=== PATIENT | male | born 1960 | race Caucasian/White ===

== ENCOUNTER 2021-05-06 02:17 | Observation (INO) | payer BC ==
[~2021-05-06] VITALS: Ht 167.6 cm; Wt 136.0 kg
[2021-05-06] VITALS (23 sets, daily range): BP systolic 130–171; BP diastolic 63–90
--- NOTE | 2021-05-06 02:20 | NUR ---
PT TO ROOM VIA EMS STRETCHER
[2021-05-06 02:50] LABS: HEMATOCRIT 40.7 % (39.0-50.0); HEMOGLOBIN 13.6 g/dl (14.0-18.0); IMMATURE GRANULOCYTES 0.9 % (0.0-5.0); MEAN CELL VOLUME 83.1 fL CALC (80.0-100.0); MEAN CORPUSCULAR HGB 27.8 pG CALC (26.0-32.0); MEAN CORPUSCULAR HGB CONC 33.4 g/dL CAL (32.0-36.0); NEUT# 5.94 thou/uL (1.82-7.42); RED BLOOD COUNT 4.9 mill/uL (4.70-6.10); RED CELL DISTRI WIDTH 13.4 % (11.5-15.5)
[2021-05-06 02:56] LABS: ALBUMIN 3.7 g/dL (3.2-5.0); ALKALINE PHOSPHATASE 129 u/l (38-126); ANION GAP 10 (6-22 (CALC)); BILIRUBIN, TOTAL 0.6 mg/dL (0.0-1.4); BUN 19 mg/dL (9-20); BUN/CREATININE RATIO 18 (12-20 (CALC)); CARBON DIOXIDE 25 mmol/l (22-30); CHLORIDE 100 mmol/l (95-108); CREATININE 1.1 mg/dL (0.7-1.3); GFR > 60 ML/MIN (>=60 (CALC)); GFR FOR AFR.AMER. > 60 ML/MIN (>=60 (CALC)); POTASSIUM 3.5 mmol/l (3.5-5.1); SGOT/AST 34 u/l (17-59); SODIUM 133 mmol/l (137-146); TOTAL PROTEIN 6.6 g/dL (6.3-8.2)
[2021-05-06 03:08] LABS: MYOGLOBIN 121 ng/mL (0 - 121)
--- NOTE | 2021-05-06 03:31 | NUR ---
DR SMITH AT BEDSIDE TO DISCUSS POC AND FINDINGS
--- NOTE | 2021-05-06 04:30 | NUR ---
PT C/O UNRELIEVED MIDSTERNAL CP; DR VALERIO NOTIFIED NEW ORDERS RECIEVED
[2021-05-06] MEDS ORDERED: TOUJEO MAX300 UNIT/M SC (05:22)
[2021-05-06] MEDS ORDERED: NOVOLOG FL100 UNIT/M SC (05:23)
[2021-05-06] MEDS ORDERED: LIPITOR80 M1 PO (05:23)
[2021-05-06] MEDS ORDERED: LOPRESSOR50 M1 PO (05:23)
[2021-05-06] MEDS ORDERED: CHLORTHALIDONE25 MG PO (05:25)
[2021-05-06] MEDS ORDERED: VALSARTAN80 MG PO (05:26)
[2021-05-06] MEDS ORDERED: ASPIRIN 81 LOW81 MG PO (05:27)
--- NOTE | 2021-05-06 06:36 | NUR ---
PT ARRIVED TO [facility]2 VIA STRETCHER FROM ED ACCOMPANIED BY ER NURSE, PT ALERT AND ORIENTED X3, ORIENTED PT TO ROOM AND CALL LIGHT, PT STATES NAUSEA HAS SUBSIDED SOME, PT HOLDING EMESIS BAG, IVF INFUSING TO EMS SITE, CALL LIGHT IN REACH,CONTINUE TO MONITOR.
--- NOTE | 2021-05-06 06:42 | NUR ---
Admission Note Report Given to: TANISHA CASTRO Transported by: Wheelchair X Stretcher Transported with: X Nurse Transporter X Patent IV O2 X Advertising Writer Location: ICU X [facility]
--- NOTE | 2021-05-06 08:00 | NUR ---
REC'D REPORT FROM NUTRITION MANAGER, PT DENIES PAIN AT THIS TIME, A/O X4, LYING ON LEFT SIDE AND RESTING COMFORTABLY
--- NOTE | 2021-05-06 12:00 | NUR ---
PT RESTING COMFORTABLY ON BACK, DENIES PAIN AT THIS TIME
--- NOTE | 2021-05-06 12:52 | NUR ---
FISHERIES OFFICER INFROMED BY JO IN LAB OF [facility] RESULTING IN [phone]. RN AND DR VALERIO INFORMED.
== END 2021-05-06 13:51 | disposition short-term general hospital (02) | DRG 282 ==
LOC: ED 02:17 → ED-I 03:42 → ED 03:48 → ED-I 03:49 → MS2 06:31
PROVIDERS: Emergency Medicine; ADMIT Hospitalist; ATTEND Hospitalist
DX: I21.4 Non-ST elevation (NSTEMI) myocardial infarction (principal); I10 Essential (primary) hypertension; E11.9 Type 2 diabetes mellitus without complications; I25.10 Atherosclerotic heart disease of native coronary artery without angina pectoris; E78.5 Hyperlipidemia, unspecified; E66.9 Obesity, unspecified; I25.2 Old myocardial infarction; Z79.4 Long term (current) use of insulin; Z95.5 Presence of coronary angioplasty implant and graft; Z95.1 Presence of aortocoronary bypass graft; Z20.822 Contact with and (suspected) exposure to COVID-19
CPT/HCPCS: J1644; S0164